=== PATIENT | male | born 1965 | race Caucasian/White ===

== ENCOUNTER → 2019-06-09 | Outpatient (CLI) | payer OTHER, BC ==
[2019-06-09 12:05] LABS: HEMATOCRIT 48.6 % (42.0-52.0); HEMOGLOBIN 15.6 g/dl (13.5-17.5); MEAN CORPUSCULAR HEMOGLOBIN 28.7 pg (27.0-33.0); MEAN CORPUSCULAR HGB CONC 32.1 g/dl (32.0-36.5); MEAN CORPUSCULAR VOLUME 89.5 fl (80.0-96.0); PLATELET COUNT, AUTOMATED 173 10^3/uL (150-450); RED BLOOD COUNT 5.43 10^6/uL (4.30-6.10); WHITE BLOOD COUNT 6.9 10^3/uL (4.0-10.0)
[2019-06-09 12:07] LABS: APPEARANCE, URINE HAZY (CLEAR); BACTERIA, URINE AUTO NEGATIVE (NEGATIVE); BILIRUBIN, URINE AUTO NEGATIVE (NEGATIVE); BLOOD, URINE BLOOD 1+ (NEGATIVE); COLOR, URINE YELLOW (YELLOW); GLUCOSE, URINE (UA) AUTO NEGATIVE (NEGATIVE); KETONE, URINE AUTO NEGATIVE (NEGATIVE); LEUKOCYTE ESTERASE, URINE AUTO 2+ (NEGATIVE); MUCUS, URINE SMALL (NEGATIVE); NITRITE, URINE AUTO NEGATIVE (NEGATIVE); PROTEIN, URINE AUTO NEGATIVE (NEGATIVE); RBC, URINE AUTO 4 /HPF (0-3); SPECIFIC GRAVITY URINE AUTO 1.023 (1.002-1.035); SQUAMOUS EPITHELIAL CELL UR AU 1 /HPF (0-6); WBC, URINE AUTO 13 /HPF (0-3)
--- NOTE | 2019-06-09 12:27 | REP ---
Clinical: Hypertension . Comparison: None . Technique: PA and lateral. Findings: The mediastinum and cardiac silhouette are normal. The lung andrews are clear and without acute consolidation, effusion, or pneumothorax. The skeletal structures are intact and normal. Impression: 1. No acute cardiopulmonary process. Electronically Signed by Michael Kent MD 06/09/2019 12:19 P
[2019-06-09 12:34] LABS: BLOOD UREA NITROGEN 14 MG/DL (7-18); CARBON DIOXIDE LEVEL 29 MEQ/L (21-32); CHLORIDE LEVEL 111 MEQ/L (98-107); GLOMERULAR FILTRATION RATE > 60.0 (>56); GLUCOSE, FASTING 111 MG/DL (70-100); POTASSIUM SERUM 4.2 MEQ/L (3.5-5.1); SODIUM LEVEL 142 MEQ/L (136-145)
--- NOTE | 2019-06-09 13:06 | REP ---
Clinical: Testicular lump. Technique: Real time ojeda scale and color Doppler evaluation using linear high frequency transducer. Findings: The bilateral testicles are normal in contour, size, echogenicity, and vascularity without mass lesion, infectious/inflammatory process, or torsion. Small/moderate bilateral hydroceles are identified. Right-sided palpable mass corresponds to to adjacent epididymal cysts measuring 1.7 cm and 1.6 cm each. Incidental 3.5 mm left epididymal cyst is also identified. No varicoceles noted. Right testicle measures 4.4 x 2.4 x 3.1 cm. Left testicle measures 4.3 x 2.6 x 2.7 cm. Impression: 1. Normal bilateral testicles. 2. Palpable mass corresponds to to large simple epididymal cysts. 3. Small/ moderate bilateral hydroceles. Electronically Signed by Michael Kent MD 06/09/2019 12:58 P
--- NOTE | 2019-06-09 13:19 | ECGEPIP ---
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 Electronically Signed on 06-09-2019 13:18:49 EST by Yakov Holm
== END ==
LOC: M RAD 11:17
PROVIDERS: ATTEND Nurse Practitioner Women's Health
DX: Z01.818 Encounter for other preprocedural examination (principal); N50.89 Other specified disorders of the male genital organs; N47.1 Phimosis

== ENCOUNTER 2019-07-02 10:01 | Day surgery (SDC) | payer BC, OTHER ==
[~2019-07-02] VITALS: Ht 180.3 cm; Wt 154.7 kg
[~2019-07-02 10:01] MED LIST: ATEN50TA2 PO; ERGO80006 PO; LIDOCAINE 1% MDV 20ML VIAL SQ PRN; LR 1,000 ML IV ONE; MONT10TA4 PO; PROAAER10 INH; VITA200028 PO; ceFAZolin SOD 1 GM in D5W MINI-BAG PLUS 50 ML IV ONE; ceFAZolin SOD 2 GM in IV 1 EA IV ONE
[2019-07-02] MEDS ORDERED: BACITRACIN OINT 30GM As Ordered ONE (11:26)
[2019-07-02 11:43] LABS: INR 1.14; PROTHROMBIN TIME 14.3 SECONDS (11.8-14.0)
[2019-07-02] MEDS ORDERED: LIDOCAINE 2% INJ 100 MG/5 ML SDV (FOR ANES.) As Ordered ONE (13:05)
[2019-07-02] MEDS ORDERED: MIDAZOLAM INJ 2 MG/2 ML VIAL (J2250) As Ordered ONE (13:05)
[2019-07-02] MEDS ORDERED: fentaNYL 100 MCG/2 ML INJECTION (J3010) As Ordered ONE ×2 (13:05→13:56)
[2019-07-02] MEDS ORDERED: propofoL 200 MG/20 ML VIAL As Ordered ONE (13:05)
[2019-07-02] MEDS ORDERED: ONDANSETRON 4MG/2ML VIAL (J2405) As Ordered ONE (13:32)
[2019-07-02] MEDS ORDERED: dexameTHASONE 4 MG/ML 1ML VIAL (J1100) As Ordered ONE (13:32)
[2019-07-02] MEDS ORDERED: LR 1,000 ML IV SCH (15:30)
[2019-07-02] MEDS ORDERED: ONDANSETRON 4MG/2ML VIAL (J2405) IV PRN (15:30)
[2019-07-02] MEDS ORDERED: oxyCODONE 5MG TAB PO PRN (15:30)
[2019-07-02] MEDS: fentaNYL 100 MCG/2 ML INJECTION (J3010) IV PRN ×4 (15:40→15:55)
[2019-07-02] MEDS ORDERED: PERCOCET 5MG/325MG TAB PO PRN (15:45)
[2019-07-02 17:05] VITALS: BP 154/83
--- NOTE | 2019-07-02 17:36 | ROOPDOC ---
[facility], [place] Report Of Operation Report of Operation DATE OF PROCEDURE: 07/02/19 PREPROCEDURE DIAGNOSIS: Phimosis. POSTPROCEDURE DIAGNOSIS: Phimosis. OPERATIVE PROCEDURE: Circumcision. SURGEON: Kingsley Buregss MD SECONDS GRADER: None. ANESTHESIA: General OPERATIVE INDICATIONS: This is a 54-year-old male with phimosis, here for circumcision. DESCRIPTION OF PROCEDURE: The patient was brought to the operating room and general anesthesia was administered. Prophylactic antibiotics were then infused. He was then placed in the supine position in preparation for the circumcision. At this point, all adhesions between the glans and remaining foreskin were released. Next circumcision incisions were made at the level of the coronal sulcus with the foreskin completely retracted downwards as well as on the outside of the foreskin with it pulled over the glans of penis. The circumcising incisions were then connected using electrocautery. All the foreskin in-between the two incisions was then removed using electrocautery. Once that was done, hemostasis was obtained using electrocautery. Once satisfied with hemostasis, the remaining skin of the penile shaft was reapproximated to the glans using interrupted #2-0 chromic sutures. Once that was done, dressings were applied and this marked conclusion of procedure. The patient was then awakened from anesthesia and transported to recovery room in stable condition. ESTIMATED BLOOD LOSS: 10 mL COMPLICATIONS: None. SPECIMENS: Foreskin. PLAN: The patient will followup in clinic in a few weeks for a postoperative visit. KINGSLEY BURGESS MD Jul 02, 2019 17:36
== END 2019-07-02 17:05 | disposition home or self-care (01) ==
LOC: M SDC 10:01
PROVIDERS: ATTEND Urology
DX: N47.1 Phimosis (principal); I10 Essential (primary) hypertension; J45.909 Unspecified asthma, uncomplicated; G47.30 Sleep apnea, unspecified; Z79.899 Other long term (current) drug therapy
CPT/HCPCS: 54161; 85610; 88304; J0690; J1100; J2250; J2405; J3010